=== PATIENT | male | born 1970 | race Caucasian/White ===

== ENCOUNTER 2018-10-18 00:12 | Emergency (ER) | payer BC ==
[~2018-10-18] VITALS: Ht 190.5 cm; Wt 103.0 kg
--- NOTE | 2018-10-18 00:17 | ED.ADGEN ---
Past History Past Medical History: No Pertinent History, DVT, Hypertension Past Surgical History: No Surgical History Alcohol Use: None Drug Use: None Adult General Chief Complaint Chief Complaint ".. Jaws were tight today...Like when my BP is up...so when I got home .. .I checked it..and it was... up...".. " I told .. my doctor... Dr. Zaman.. I have blood pressure... but not take meds.. I take coumadin...for my blood clot .. in my kidney..." " I got letter .. Dr.. Zaman quit...".. " I have no DrLudy now... ".. " I started smoking again today.. I checked my BP readings with [employer].. and it was too high.. 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 Pt. states he feels buzzing in his jaws ..when it is elevated. Pt. denies any history of chest pain. Denies any history of angina. There is no history of early onset cardiac disease in his family. Both father and mother's and ages 74. 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 Does not know his last INR level. No recent travel. No history immunosuppression. Patient normally healthy except for some mild hypertension and prior renal infarct. Review of Systems Review of Systems Constitutional: Denies fever or chills [] Eyes: Denies change in visual acuity, redness, or eye pain [] HENT: Denies nasal congestion or sore throat [] Buzzing in jaws... Respiratory: Denies cough or shortness of breath [] Cardiovascular: No additional information not addressed in HPI [] GI: Denies abdominal pain, nausea, vomiting, bloody stools or diarrhea [] : Denies dysuria or hematuria [] Musculoskeletal: Denies back pain or joint pain [] Integument: Denies rash or skin lesions [] Neurologic: Denies headache, focal weakness or sensory changes [] Endocrine: Denies polyuria or polydipsia [] All other systems were reviewed and found to be within normal limits, except as documented in this note. Family History Family History Noncontributory Current Medications Current Medications Current Medications Medications (Trade) Dose Ordered Sig/Sj Start Time Stop Time Status Last Admin Dose Admin Aspirin (Children'S Aspirin) 324 mg 1X ONCE 10/18/18 01:00 10/18/18 01:14 DC 10/18/18 01:33 81 MG Lactated Ringer's 1,000 ml @ 1,000 mls/hr Q1H 10/18/18 01:00 10/18/18 01:59 DC Allergies Allergies Allergies Coded Allergies Type Severity Reaction Last Updated Verified No Known Drug Allergies 10/18/18 No Physical Exam Physical Exam Constitutional: Well developed, well nourished, no acute distress, non-toxic appearance. [] HENT: Normocephalic, atraumatic, bilateral external ears normal, oropharynx moist, no oral exudates, nose normal. [] Eyes: PERRLA, EOMI, conjunctiva normal, no discharge. [] Neck: Normal range of motion, no tenderness, supple, no stridor. [] Cardiovascular:Heart rate regular rhythm, no murmur [] Lungs & Thorax: Bilateral breath sounds equal apex on auscultation [] Abdomen: Bowel sounds normal, soft, no tenderness, no masses, no pulsatile masses. Old surgery scar. Skin: Warm, dry, no erythema, no rash. [] Back: No tenderness, no CVA tenderness. [] Extremities: No tenderness, no cyanosis, no clubbing, ROM intact, no edema. [] Neurologic: Alert and oriented X 3, normal motor function, normal sensory function, no focal deficits noted. [] Psychologic: Affect anxious, judgement normal, mood normal. [] Current Patient Data Vital Signs Vital Signs Date Time Temp Pulse Resp B/P (MAP) Pulse Ox O2 Delivery O2 Flow Rate FiO2 10/18/18 00:25 98.1 80 24 135/102 (113) 99 Room Air Lab Results Laboratory Tests Test 10/18/18 00:55 White Blood Count 8.0 x10^3/uL (4.0-11.0) Red Blood Count 4.61 x10^6/uL (4.30-5.70) Hemoglobin 14.1 g/dL (13.0-17.5) Hematocrit 41.0 % (39.0-53.0) Mean Corpuscular Volume 89 fL (79-100) Mean Corpuscular Hemoglobin 31 pg (25-35) Mean Corpuscular Hemoglobin Concent 34 g/dL (31-37) Red Cell Distribution Width 13.0 % (11.5-14.5) Platelet Count 210 x10^3/uL (140-400) Neutrophils (%) (Auto) 40 % (31-73) Lymphocytes (%) (Auto) 48 % (24-48) Monocytes (%) (Auto) 10 % (0-9) H Eosinophils (%) (Auto) 3 % (0-3) Basophils (%) (Auto) 1 % (0-3) Neutrophils # (Auto) 3.2 x10^3uL (1.8-7.7) Lymphocytes # (Auto) 3.8 x10^3/uL (1.0-4.8) Monocytes # (Auto) 0.8 x10^3/uL (0.0-1.1) Eosinophils # (Auto) 0.2 x10^3/uL (0.0-0.7) Basophils # (Auto) 0.1 x10^3/uL (0.0-0.2) Prothrombin Time 21.7 SEC (9.4-11.4) H Prothrombin Time INR 2.3 (0.9-1.1) H PTT 36 SEC (23-33) H D-Dimer (Gaby) Pending Sodium Level 141 mmol/L (136-145) Potassium Level 4.1 mmol/L (3.5-5.1) Chloride Level 105 mmol/L (98-107) Carbon Dioxide Level 26 mmol/L (21-32) Anion Gap 10 (6-14) Blood Urea Nitrogen 23 mg/dL (8-26) Creatinine 1.0 mg/dL (0.7-1.3) Estimated GFR (Cockcroft-Gault) 79.4 Glucose Level 109 mg/dL (70-99) H Calcium Level 9.0 mg/dL (8.5-10.1) Magnesium Level 2.0 mg/dL (1.8-2.4) Total Bilirubin 0.3 mg/dL (0.2-1.0) Direct Bilirubin 0.1 mg/dL (0.0-0.2) Aspartate Amino Transferase (AST) 35 U/L (15-37) Alanine Aminotransferase (ALT) 72 U/L (16-63) H Alkaline Phosphatase 69 U/L (46-116) Creatine Kinase 201 U/L (39-308) Troponin I Quantitative < 0.017 ng/mL (0-0.055) VF-Suc-F-Type Natriuretic Peptide 16 pg/mL (0-124) Total Protein 7.4 g/dL (6.4-8.2) Albumin 4.0 g/dL (3.4-5.0) Lipase 111 U/L (73-393) EKG EKG My interpretation EKG shows sinus rhythm at 69 bpm. No findings acute STEMI of contralateral changes.[] Radiology/Procedures Radiology/Procedures I interpretation of chest x-ray shows no acute cardiopulmonary findings. No free air under the diaphragm.[] Course & Med Decision Making Course & Med Decision Making Pertinent Labs and Imaging studies reviewed. (See chart for details) Keep follow-up primary care. Continue take Coumadin directed. Take your blood pressure cuff to the doctor's office and compare readings with the doctor's readings. Return if any concerns. [] Final Impression Final Impression 1. Hx. of HTN[]-diastolic 2. History of renal infarct 3. INR 2.3 Dragon Disclaimer Dragon Disclaimer This electronic medical record was generated, in whole or in part, using a voice recognition dictation system. Dragon Disclaimer This chart was dictated in whole or in part using Voice Recognition software in a busy, high-work load, and often noisy Emergency Department environment. It may contain unintended and wholly unrecognized errors or omissions. Discharge Summary Visit Information Final Diagnosis Problems Medical Problems: (1) Hypertension Status: Acute Brief Hospital Course Allergies Allergies Coded Allergies Type Severity Reaction Last Updated Verified No Known Drug Allergies 10/18/18 No Vital Signs Vital Signs Date Time Temp Pulse Resp B/P (MAP) Pulse Ox O2 Delivery O2 Flow Rate FiO2 10/18/18 00:25 98.1 80 24 135/102 (113) 99 Room Air Lab Results Laboratory Tests Test 10/18/18 00:55 White Blood Count 8.0 x10^3/uL (4.0-11.0) Red Blood Count 4.61 x10^6/uL (4.30-5.70) Hemoglobin 14.1 g/dL (13.0-17.5) Hematocrit 41.0 % (39.0-53.0) Mean Corpuscular Volume 89 fL (79-100) Mean Corpuscular Hemoglobin 31 pg (25-35) Mean Corpuscular Hemoglobin Concent 34 g/dL (31-37) Red Cell Distribution Width 13.0 % (11.5-14.5) Platelet Count 210 x10^3/uL (140-400) Neutrophils (%) (Auto) 40 % (31-73) Lymphocytes (%) (Auto) 48 % (24-48) Monocytes (%) (Auto) 10 % (0-9) Eosinophils (%) (Auto) 3 % (0-3) Basophils (%) (Auto) 1 % (0-3) Neutrophils # (Auto) 3.2 x10^3uL (1.8-7.7) Lymphocytes # (Auto) 3.8 x10^3/uL (1.0-4.8) Monocytes # (Auto) 0.8 x10^3/uL (0.0-1.1) Eosinophils # (Auto) 0.2 x10^3/uL (0.0-0.7) Basophils # (Auto) 0.1 x10^3/uL (0.0-0.2) Prothrombin Time 21.7 SEC (9.4-11.4) Prothromb Time International Ratio 2.3 (0.9-1.1) Activated Partial Thromboplast Time 36 SEC (23-33) Sodium Level 141 mmol/L (136-145) Potassium Level 4.1 mmol/L (3.5-5.1) Chloride Level 105 mmol/L (98-107) Carbon Dioxide Level 26 mmol/L (21-32) Anion Gap 10 (6-14) Blood Urea Nitrogen 23 mg/dL (8-26) Creatinine 1.0 mg/dL (0.7-1.3) Estimated GFR (Cockcroft-Gault) 79.4 Glucose Level 109 mg/dL (70-99) Calcium Level 9.0 mg/dL (8.5-10.1) Magnesium Level 2.0 mg/dL (1.8-2.4) Total Bilirubin 0.3 mg/dL (0.2-1.0) Direct Bilirubin 0.1 mg/dL (0.0-0.2) Aspartate Amino Transf (AST/SGOT) 35 U/L (15-37) Alanine Aminotransferase (ALT/SGPT) 72 U/L (16-63) Alkaline Phosphatase 69 U/L (46-116) Creatine Kinase 201 U/L (39-308) Troponin I Quantitative < 0.017 ng/mL (0-0.055) FM-Oeg-E-Type Natriuretic Peptide 16 pg/mL (0-124) Total Protein 7.4 g/dL (6.4-8.2) Albumin 4.0 g/dL (3.4-5.0) Lipase 111 U/L (73-393) Brief Hospital Course Mr. Edouard is a 48 old male who presented with hx. elevated BP at home. Discharge Information Condition at Discharge: Improved, Stable Dischare Medications Current Medications Aspirin (Children'S Aspirin) 324 mg 1X ONCE PO Last administered on 10/18/18at 01:33; Admin Dose 81 MG; Start 10/18/18 at 01:00; Stop 10/18/18 at 01:14; Status DC Lactated Ringer's 1,000 ml @ 1,000 mls/hr Q1H IV ; Start 10/18/18 at 01:00; Stop 10/18/18 at 01:59; Status DC Active Scripts Active Reported Warfarin Sodium 4 Mg Tablet 4.5 Mg PO DAILY Warfarin Sodium 4 Mg Tablet 4 Mg PO [id number] GARCIA MD Oct 18, 2018 00:17
[2018-10-18] MEDS ORDERED: IV RINGERS SOLUTION,LACTATED 1,000 ML IV SCH (01:00)
[2018-10-18] MEDS ORDERED: ASPIRIN 81 MG TAB.CHEW PO ONE (01:00)
[2018-10-18] MEDS ORDERED: WARF4TAB64 PO ×2 (01:17)
[2018-10-18 01:22] LABS: BASO # 0.1 x10^3/uL (0.0-0.2); BASO % 1 % (0-3); EOS # 0.2 x10^3/uL (0.0-0.7); EOS % 3 % (0-3); HEMOGLOBIN 14.1 g/dL (13.0-17.5); LYMPH # 3.8 x10^3/uL (1.0-4.8); LYMPH % 48 % (24-48); MEAN CORPUSCULAR HEMOGLOBIN 31 pg (25-35); MEAN CORPUSCULAR HGB CONC 34 g/dL (31-37); MEAN CORPUSCULAR VOLUME 89 fL (79-100); MONO # 0.8 x10^3/uL (0.0-1.1); MONO % 10 % (0-9); NEUT # 3.2 x10^3uL (1.8-7.7); NEUT % 40 % (31-73); PLATELET COUNT 210 x10^3/uL (140-400); RED BLOOD COUNT 4.61 x10^6/uL (4.30-5.70)
[2018-10-18 01:39] LABS: DIRECT BILIRUBIN 0.1 mg/dL (0.0-0.2); GFR 79.4; POTASSIUM 4.1 mmol/L (3.5-5.1); TOTAL BILIRUBIN 0.3 mg/dL (0.2-1.0); TOTAL PROTEIN 7.4 g/dL (6.4-8.2)
[2018-10-18 02:20] VITALS: BP 113/82
--- NOTE | 2018-10-18 07:44 | RAD ---
Chest, 2 views, 10/18/2018: HISTORY: Hypertension The heart size and pulmonary vascularity are normal. No pulmonary infiltrate is seen. There is no evidence of pleural fluid. IMPRESSION: No acute cardiopulmonary abnormality is detected. Electronically signed by: Urbano Montoya MD (10/18/2018 7:41 AM) [facility]
--- NOTE | 2018-10-18 16:26 | EKG ---
[address] [address] Test Date: 2018-10-18 Test Time: 00:30:07 Pat Name: MU OLIVER Department: Room: Gender: M Senior Trainer: : 1970 Requested By: ANALY FORDE Order Number: [id number] Reading MD: Mark Scott Measurements Intervals [place] Rate: 69 P: -17 DE: 154 QRS: 9 QRSD: 88 T: 24 QT: 380 QTc: 409 Interpretive Statements SINUS RHYTHM Electronically Signed On 10-25-2018 8:08:45 SET KEY DRIVER by Mark Scott
[2018-10-19] MEDS ORDERED: BUPR100T7 PO (23:37)
== END 2018-10-18 02:27 | disposition home or self-care (01) ==
LOC: ER 00:12
DX: I10 Essential (primary) hypertension (principal); N28.0 Ischemia and infarction of kidney; R79.1 Abnormal coagulation profile; Z86.718 Personal history of other venous thrombosis and embolism; Z79.82 Long term (current) use of aspirin
CPT/HCPCS: 36415; 71046; 80048; 80076; 82550; 83690; 83735; 83880; 84443; 84484; 85025; 85379; 85610; 85730; 93005; 99284

== ENCOUNTER 2018-10-19 22:35 | Emergency (ER) | payer BC ==
[~2018-10-19] VITALS: Ht 190.5 cm; Wt 113.4 kg
[~2018-10-19 22:35] MED LIST: WARF4TAB64 PO
[2018-10-19] MEDS ORDERED: BUPR100T7 PO (23:37)
--- NOTE | 2018-10-19 23:39 | PHYS DOC ---
Adult General Chief Complaint Chief Complaint anxiety HPI HPI 48 years old and presented to the emergency department with feeling anxious his been checking his blood pressure worried f his blood pressure high he was seen this morning at the hospital evaluated at complete blood work reported to be negative Review of Systems Review of Systems Constitutional: Denies fever or chills [] Eyes: Denies change in visual acuity, redness, or eye pain [] HENT: Denies nasal congestion or sore throat [] Respiratory: Denies cough or shortness of breath [] Cardiovascular: No additional information not addressed in HPI [] GI: Denies abdominal pain, nausea, vomiting, bloody stools or diarrhea [] : Denies dysuria or hematuria [] Musculoskeletal: Denies back pain or joint pain [] Integument: Denies rash or skin lesions [] Neurologic: Denies headache, focal weakness or sensory changes [] Endocrine: Denies polyuria or polydipsia [] All other systems were reviewed and found to be within normal limits, except as documented in this note. Allergies Allergies Allergies Coded Allergies Type Severity Reaction Last Updated Verified No Known Drug Allergies 10/18/18 No Physical Exam Physical Exam Constitutional: Well developed, well nourished, no acute distress, non-toxic appearance. [] HENT: Normocephalic, atraumatic, bilateral external ears normal, oropharynx moist, no oral exudates, nose normal. [] Eyes: PERRLA, EOMI, conjunctiva normal, no discharge. [] Neck: Normal range of motion, no tenderness, supple, no stridor. [] Cardiovascular:Heart rate regular rhythm, no murmur [] Lungs & Thorax: Bilateral breath sounds clear to auscultation [] Abdomen: Bowel sounds normal, soft, no tenderness, no masses, no pulsatile masses. [] Skin: Warm, dry, no erythema, no rash. [] Back: No tenderness, no CVA tenderness. [] Extremities: No tenderness, no cyanosis, no clubbing, ROM intact, no edema. [] Neurologic: Alert and oriented X 3, normal motor function, normal sensory function, no focal deficits noted. [] Psychologic: Affect normal, judgement normal, anxious[] Current Patient Data Vital Signs Vital Signs Date Time Temp Pulse Resp B/P (MAP) Pulse Ox O2 Delivery O2 Flow Rate FiO2 10/19/18 22:40 98.5 63 22 97 Room Air EKG EKG [] Radiology/Procedures Radiology/Procedures [] Course & Med Decision Making Course & Med Decision Making Pertinent Labs and Imaging studies reviewed. (See chart for details) [] Final Impression Final Impression [] Problems: (1) Anxiety Dragon Disclaimer Dragon Disclaimer This electronic medical record was generated, in whole or in part, using a voice recognition dictation system. ROB MÉNDEZ MD Oct 19, 2018 23:39
[2018-10-19 23:40] VITALS: BP 129/85
== END 2018-10-19 23:45 | disposition home or self-care (01) ==
LOC: ER 22:35
DX: F41.9 Anxiety disorder, unspecified (principal)
CPT/HCPCS: 99284

== ENCOUNTER 2018-10-27 17:08 | Inpatient (IN) | payer BC ==
[~2018-10-27] VITALS: Ht 190.5 cm; Wt 105.0 kg
[~2018-10-27 17:08] MED LIST changes: +BUPR100T7 PO
--- NOTE | 2018-10-27 17:22 | EKG ---
[address] [address] Test Date: 2018-10-27 Test Time: 17:16:56 Pat Name: MU OLIVER Department: Room: Gender: M Pharmacist In Charge: : 1970 Requested By: TIMOTHY GIFFORD Order Number: [id number] Reading MD: Jonn Yung Measurements Intervals [place] Rate: 64 P: -3 NE: 154 QRS: 21 QRSD: 90 T: 52 QT: 384 QTc: 396 Interpretive Statements SINUS RHYTHM Electronically Signed On 10-30-2018 10:50:51 SHOE COVERER by Jonn Yung
--- NOTE | 2018-10-27 17:33 | RAD ---
Chest radiograph 10/27/2018 4:18 PM INDICATION: Chest pain COMPARISON: October 18, 2018 TECHNIQUE: Portable upright frontal view of the chest is provided. FINDINGS: The cardiomediastinal silhouette is within normal limits. There are no pleural effusions. There is no pulmonary vascular congestion. There is no pneumothorax. The lungs are clear. No significant osseous abnormality is identified. IMPRESSION: No acute cardiopulmonary process. Electronically signed by: Tasha Garcia MD (10/27/2018 5:30 PM) [facility]
[2018-10-27] MEDS ORDERED: ASPIRIN 81 MG TAB.CHEW ONE (17:40)
--- NOTE | 2018-10-27 17:41 | PHYS DOC ---
Past History Past Medical History: DVT, Hypertension Past Surgical History: No Surgical History Alcohol Use: None Drug Use: None Adult General Chief Complaint Chief Complaint: CHEST PAIN HPI HPI 48-year-old male presenting to the emergency department today with chest pain. He has been having this pain for about a week. The pain is a pressure sensation that goes into the throat. It is a burning sensation as well. He also has episodes of sweatiness of skin. He has a history of a renal infarct for which she takes warfarin. He denies unilateral leg swelling hemoptysis or recent surgery or immobilization. he denies having dm, htn, or hld. Pos for smoking. Review of systems is negative for abdominal pain vomiting fevers chills. All other review of systems is negative unless otherwise noted in history of present illness. ED course: 48-year-old woman presenting the emergency department today with chest pain. EKG obtained and reviewed by myself shows sinus rhythm with a regular rate. ST segments congruent. Not suggestive of ACS. On arrival the patient's pain is not present. He is resting comfortably in the examination room. Chest x-ray obtained along with blood work. Patient was seen just prior to sign out at 6 PM. Chest x-ray is unremarkable. Blood work pending at this time. Plan is to admit the patient to the hospital for chest pain rule out. HEART SCORE History Slightly suspicious 0 Moderately suspicious +1 Highly suspicious +2 EKG 1 point: No ST depression but LBBB, LVH, repolarization changes (ex: digoxin); 2 points: ST depression/elevation not due to LBBB, LVH, or digoxin Normal 0 Non-specific repolarization disturbance +[address] depression +2 Age <45 0 45-65 +1 65 +2 Risk factors Risk factors: HTN, hypercholesterolemia, DM, obesity (BMI >30 kg/m), smoking (current, or smoking cessation 3 mo), positive family history (parent or sibling with CVD before age 65); atherosclerotic disease: prior KS, PCI/CABG, CVA/TIA, or peripheral arterial disease No known risk factors 0 1-2 risk factors +1 3 risk factors or history of atherosclerotic disease +2 Initial troponin Use local assays and corresponding cutoffs NOT BACK YET Total 4 points Review of Systems Review of Systems SEE ABOVE. Current Medications Current Medications Current Medications Medications (Trade) Dose Ordered Sig/Sj Start Time Stop Time Status Last Admin Dose Admin Aspirin (Children'S Aspirin) 324 mg 1X ONCE 2/22/19 17:30 10/27/18 17:31 UNV Nitroglycerin (Nitrostat) 0.4 mg 1X ONCE 10/27/18 17:30 10/27/18 17:31 UNV Allergies Allergies Allergies Coded Allergies Type Severity Reaction Last Updated Verified No Known Drug Allergies 10/18/18 No Physical Exam Physical Exam SEE ABOVE Constitutional: Well developed, well nourished, no acute distress, non-toxic appearance. [] HENT: Normocephalic, atraumatic, bilateral external ears normal, oropharynx moist, no oral exudates, nose normal. [] Eyes: PERRLA, EOMI, conjunctiva normal, no discharge. [] Neck: Normal range of motion, no tenderness, supple, no stridor. [] Cardiovascular:Heart rate regular rhythm, no murmur [] Lungs & Thorax: Bilateral breath sounds clear to auscultation [] Abdomen: Bowel sounds normal, soft, no tenderness, no masses, no pulsatile masses. [] Skin: Warm, dry, no erythema, no rash. [] Back: No tenderness, no CVA tenderness. [] Extremities: No tenderness, no cyanosis, no clubbing, ROM intact, no edema. [] Neurologic: Alert and oriented X 3, normal motor function, normal sensory function, no focal deficits noted. [] Psychologic: Affect normal, judgement normal, mood normal. [] Current Patient Data Vital Signs Vital Signs Date Time Temp Pulse Resp B/P (MAP) Pulse Ox O2 Delivery O2 Flow Rate FiO2 10/27/18 17:29 98.1 70 18 100 Room Air EKG EKG [] Radiology/Procedures Radiology/Procedures [] Course & Med Decision Making Course & Med Decision Making Pertinent Labs and Imaging studies reviewed. (See chart for details) [] Dragon Disclaimer Dragon Disclaimer This electronic medical record was generated, in whole or in part, using a voice recognition dictation system. Departure Departure: Impression: Primary Impression: Chest pain Referrals: PCP,MUNIR (PCP) TIMOTHY GIFFORD MD Oct 27, 2018 17:41
[2018-10-27] MEDS ORDERED: ASPIRIN 81 MG TAB.CHEW PO ONE (17:45)
[2018-10-27] MEDS ORDERED: NITROGLYCERIN SUBLINGUAL 0.4 MG BOTTLE OF 25. SL ONE (17:45)
[2018-10-27 17:57] LABS: BASO # 0.1 x10^3/uL (0.0-0.2); BASO % 1 % (0-3); EOS # 0.2 x10^3/uL (0.0-0.7); EOS % 2 % (0-3); HEMATOCRIT 42.7 % (39.0-53.0); HEMOGLOBIN 14.5 g/dL (13.0-17.5); LYMPH # 3.1 x10^3/uL (1.0-4.8); LYMPH % 39 % (24-48); MEAN CORPUSCULAR HEMOGLOBIN 30 pg (25-35); MEAN CORPUSCULAR HGB CONC 34 g/dL (31-37); MEAN CORPUSCULAR VOLUME 90 fL (79-100); MONO # 0.7 x10^3/uL (0.0-1.1); MONO % 9 % (0-9); NEUT # 3.8 x10^3uL (1.8-7.7); NEUT % 49 % (31-73); PLATELET COUNT 234 x10^3/uL (140-400); RED BLOOD COUNT 4.76 x10^6/uL (4.30-5.70); RED CELL DISTRIBUTION WIDTH 13.3 % (11.5-14.5); WHITE BLOOD COUNT 7.8 x10^3/uL (4.0-11.0)
[2018-10-27 18:05] LABS: ALBUMIN 4.3 g/dL (3.4-5.0); CALCIUM 9.2 mg/dL (8.5-10.1); CREATININE 1.1 mg/dL (0.7-1.3); DIRECT BILIRUBIN 0.2 mg/dL (0.0-0.2); GFR 71.1; POTASSIUM 3.9 mmol/L (3.5-5.1); TOTAL BILIRUBIN 0.6 mg/dL (0.2-1.0); TOTAL PROTEIN 7.7 g/dL (6.4-8.2)
[2018-10-27] MEDS ORDERED: ONDANSETRON PF 4 MG/2 ML VIAL. IV PRN (20:30)
[2018-10-27] MEDS ORDERED: buPROPion 100 MG TABLET PO SCH (21:00)
[2018-10-27] MEDS ORDERED: ALPRAZolam 0.5 MG TABLET PO SCH (21:00)
--- NOTE | 2018-10-27 22:05 | NUR ---
Pt admitted from ER to [facility] room 121 via [facility], accompanied by EMS and nursing staff. Pt transferred from [facility] to bed independently. Pt admitted for chest/epigastric pain. Pt was recently seen at [facility] for similar symptoms. Admission assessment completed. Pt A&O x4, very pleasant & cooperative. Pt placed on Telemetry, SR noted on monitor. Health history and home medications reviewed with pt. Pt lives at home with . Coumadin & SCDs for VTE. Pt refused flu vaccine. Cardiology consulted. Pt was given written information regarding hospital policies, unit procedures and contact persons. Valuables were checked, logged and left at bedside. Call light within reach. Pt given box lunch.
[2018-10-27 22:20] VITALS: BP 123/72
[2018-10-27] MEDS ORDERED: CLON0.5T11 PO (22:41)
[2018-10-27] MEDS ORDERED: clonazePAM 0.5 MG TABLET PO PRN (22:45)
[2018-10-27] MEDS ORDERED: NON FORMULARY ITEM (Warfarin Sodium 4 MG) PO SCH (22:45)
[2018-10-28 06:06] VITALS: BP 110/68
[2018-10-28] MEDS: IPRATRPIUM/ALBUTEROL 0.5/2.5MG 3 ML NEBU. NEB SCH ×2 (06:15→10:25)
[2018-10-28 06:44] LABS: BASO % 1 % (0-3); EOS # 0.2 x10^3/uL (0.0-0.7); EOS % 3 % (0-3); HEMATOCRIT 40.4 % (39.0-53.0); HEMOGLOBIN 13.7 g/dL (13.0-17.5); LYMPH # 2.3 x10^3/uL (1.0-4.8); LYMPH % 36 % (24-48); MEAN CORPUSCULAR HEMOGLOBIN 30 pg (25-35); MEAN CORPUSCULAR HGB CONC 34 g/dL (31-37); MEAN CORPUSCULAR VOLUME 89 fL (79-100); MONO # 0.6 x10^3/uL (0.0-1.1); MONO % 10 % (0-9); NEUT # 3.2 x10^3uL (1.8-7.7); NEUT % 51 % (31-73); PLATELET COUNT 215 x10^3/uL (140-400); RED BLOOD COUNT 4.53 x10^6/uL (4.30-5.70); RED CELL DISTRIBUTION WIDTH 13.2 % (11.5-14.5); WHITE BLOOD COUNT 6.3 x10^3/uL (4.0-11.0)
[2018-10-28 06:48] LABS: CALCIUM 8.9 mg/dL (8.5-10.1); GFR 79.4; POTASSIUM 3.9 mmol/L (3.5-5.1)
[2018-10-28] MEDS ORDERED: buPROPion SR 100 MG TABLET.SA. PO SCH (09:00)
[2018-10-28] MEDS ORDERED: WARFARIN SODIUM 4.5 MG PO SCH (09:00)
--- NOTE | 2018-10-28 10:20 | NUR ---
Cardiology consult called into [facility] cardiology
[2018-10-28 11:09] VITALS: BP 113/70
--- NOTE | 2018-10-28 14:04 | PDOC2 ---
CONSULT Date of Admission DATE: 10/28/18 TIME: 14:04 Reason for Consult: Chest pain Referring Physician: Dr. Lewis Chief Complaint Chest pain and anxiety Source: Chart review, Patient Problem List Problems Medical Problems: (1) Chest pain Status: Acute History of Present Illness 48-year-old male presented with one-week history of intermittent episodes of retrosternal chest pressure associated with feelings of anxiety and mild dyspnea. Symptoms not related to exertion or food intake. He denied any orthopnea/PND or syncope. Past Medical History Renal infarction treated with Coumadin Anxiety Past Surgical History: No pertinent history Family History Negative for premature coronary artery disease Social History Patient smokes one pack of cigarettes daily but denied any alcohol or drug use Current Medications Current Medications Aspirin (Children'S Aspirin) 324 mg 1X ONCE PO Last administered on 10/27/18at 17:43; Start 10/27/18 at 17:45; Stop 10/27/18 at 17:46; Status DC Nitroglycerin (Nitrostat) 0.4 mg 1X ONCE SL Last administered on 10/27/18at 17: 42; Start 10/27/18 at 17:45; Stop 10/27/18 at 17:46; Status DC Aspirin (Children'S Aspirin) 81 mg STK-MED ONCE .ROUTE ; Start 10/27/18 at 17:40 ; Stop 10/27/18 at 17:41; Status DC Ondansetron HCl (Zofran) 4 mg PRN Q4HRS PRN IV NAUSEA/VOMITING; Start 10/27/18 at 20:30; Stop 10/28/18 at 20:29 Albuterol/ Ipratropium (Duoneb) 3 ml RTQID NEB ; Start 10/28/18 at 08:00; Stop 10/29/18 at 07:59 Bupropion HCl (Wellbutrin) 100 mg HS PO Last administered on 10/27/18at 22:49; Start 10/27/18 at 21:00; Stop 10/28/18 at 07:23; Status DC Alprazolam (Xanax) 0.5 mg HS PO Last administered on 10/27/18at 22:49; Start at 21:00 Clonazepam (KlonoPIN) 0.5 mg PRN BID PRN PO ANXIETY / AGITATION; Start at 22:45 Bupropion HCl (Wellbutrin Sr) 100 mg BID PO Last administered on 10/28/18at 09: 58; Start 10/28/18 at 09:00 Non-Formulary Medication (Warfarin Sodium ) 4 mg PO ; Start at 22:45; Status UNV Non-Formulary Medication (Warfarin Sodium ) 4.5 mg DAILY PO ; Start 10/28/18 at 09:00; Status UNV Warfarin Sodium (Coumadin Per Physician) 1 each PRN DAILY PRN MC SEE COMMENTS; Start 10/28/18 at 07:30 Active Scripts Active Wellbutrin Sr (Bupropion Hcl) 100 Mg Tablet.er 1 Tab PO BID Reported Clonazepam 0.5 Mg Tablet 0.5 Mg PO PRN BID PRN LAST DOSE GIVEN: DATE: TIME: NEXT DOSE DUE: DATE: TIME: Warfarin Sodium 4 Mg Tablet 4.5 Mg PO DAILY Warfarin Sodium 4 Mg Tablet 4 Mg PO Allergies: Coded Allergies: No Known Drug Allergies (Unverified , 10/18/18) PSYCHOLOGICAL ROS: No: Hallucinations Eyes: No: Loss of vision HEENT: No: Epistaxis Respiratory: YES: Shortness of breath; No: Hemoptysis Cardiovascular: yes: Chest Pain Gastrointestinal: No: Vomiting, Diarrhea Genitourinary: No: Henaturia Neurological: No: Seizures Skin: No: Rash General: Alert, Oriented X3 HEENT: Atraumatic, PERRLA Lungs: Clear to auscultation Heart: Regular rate Abdomen: Soft, No tenderness Extremities: No edema Psych/Mental Status: Mood NL VITALS Vital Signs Date Time Temp Pulse Resp B/P (MAP) Pulse Ox O2 Delivery O2 Flow Rate FiO2 10/28/18 11:09 98.2 60 20 113/70 (84) 99 Room Air Labs Laboratory Tests Test 10/27/18 17:24 10/27/18 17:37 10/27/18 23:45 10/28/18 06:28 White Blood Count 7.8 x10^3/uL (4.0-11.0) 6.3 x10^3/uL (4.0-11.0) Red Blood Count 4.76 x10^6/uL (4.30-5.70) 4.53 x10^6/uL (4.30-5.70) Hemoglobin 14.5 g/dL (13.0-17.5) 13.7 g/dL (13.0-17.5) Hematocrit 42.7 % (39.0-53.0) 40.4 % (39.0-53.0) Mean Corpuscular Volume 90 fL (79-100) 89 fL (79-100) Mean Corpuscular Hemoglobin 30 pg (25-35) 30 pg (25-35) Mean Corpuscular Hemoglobin Concent 34 g/dL (31-37) 34 g/dL (31-37) Red Cell Distribution Width 13.3 % (11.5-14.5) 13.2 % (11.5-14.5) Platelet Count 234 x10^3/uL (140-400) 215 x10^3/uL (140-400) Neutrophils (%) (Auto) 49 % (31-73) 51 % (31-73) Lymphocytes (%) (Auto) 39 % (24-48) 36 % (24-48) Monocytes (%) (Auto) 9 % (0-9) 10 % (0-9) Eosinophils (%) (Auto) 2 % (0-3) 3 % (0-3) Basophils (%) (Auto) 1 % (0-3) 1 % (0-3) Neutrophils # (Auto) 3.8 x10^3uL (1.8-7.7) 3.2 x10^3uL (1.8-7.7) Lymphocytes # (Auto) 3.1 x10^3/uL (1.0-4.8) 2.3 x10^3/uL (1.0-4.8) Monocytes # (Auto) 0.7 x10^3/uL (0.0-1.1) 0.6 x10^3/uL (0.0-1.1) Eosinophils # (Auto) 0.2 x10^3/uL (0.0-0.7) 0.2 x10^3/uL (0.0-0.7) Basophils # (Auto) 0.1 x10^3/uL (0.0-0.2) 0.0 x10^3/uL (0.0-0.2) Sodium Level 143 mmol/L (136-145) 141 mmol/L (136-145) Potassium Level 3.9 mmol/L (3.5-5.1) 3.9 mmol/L (3.5-5.1) Chloride Level 104 mmol/L (98-107) 105 mmol/L (98-107) Carbon Dioxide Level 28 mmol/L (21-32) 26 mmol/L (21-32) Anion Gap 11 (6-14) 10 (6-14) Blood Urea Nitrogen 11 mg/dL (8-26) 16 mg/dL (8-26) Creatinine 1.1 mg/dL (0.7-1.3) 1.0 mg/dL (0.7-1.3) Estimated GFR (Cockcroft-Gault) 71.1 79.4 Glucose Level 84 mg/dL (70-99) 109 mg/dL (70-99) Calcium Level 9.2 mg/dL (8.5-10.1) 8.9 mg/dL (8.5-10.1) Total Bilirubin 0.6 mg/dL (0.2-1.0) Direct Bilirubin 0.2 mg/dL (0.0-0.2) Aspartate Amino Transf (AST/SGOT) 24 U/L (15-37) Alanine Aminotransferase (ALT/SGPT) 48 U/L (16-63) Alkaline Phosphatase 59 U/L (46-116) Troponin I Quantitative < 0.017 ng/mL (0-0.055) < 0.017 ng/mL (0-0.055) < 0.017 ng/mL (0-0.055) Total Protein 7.7 g/dL (6.4-8.2) Albumin 4.3 g/dL (3.4-5.0) Lipase 98 U/L (73-393) D-Dimer (Gaby) < 0.19 mg/L (0.00-0.50) Test 10/28/18 09:54 Prothrombin Time 24.0 SEC (9.4-11.4) Prothromb Time International Ratio 2.5 (0.9-1.1) Assessment/Plan 1. Chest pain with atypical features most probably related to his anxiety. Myocardial infarction has been ruled out. Plan for exercise stress echocardiogram as an outpatient. 2. History of renal infarct: On Coumadin Thank you for your consultation PASNOORI,ELIGIO R MD Oct 28, 2018 14:04
--- NOTE | 2018-10-28 14:35 | NUR ---
Pt is D/C home with self care. Patient is stable at time of d/c. IV removed. Tele monitor removed. Patient ambulated off unit. Patients belongings sent with pt at time of d/c
--- NOTE | 2018-10-28 15:03 | SSS ---
ADMIT DATE: 10/28/2018 HISTORY OF PRESENT ILLNESS: The patient is a 48-year-old Wallisian male patient, who came to the Emergency Room complaining of chest pain, has been having this pain for about a week. The pain is a pressure sensation that goes into the throat. It is burning sensation as well. He also had episodes of diaphoresis, history of renal infarct for which he takes warfarin. He denied any leg swelling, hemoptysis, has no significant past medical history. He was extensively investigated in the Emergency Room. His first set of cardiac enzymes was unremarkable. EKG showed that he was in sinus rhythm and was admitted to do more sets of cardiac enzyme and to consult the cardiology team. PAST MEDICAL HISTORY: Significant for renal infarct for which he is on Coumadin, although I am not sure of the specific whether he has history of atrial fibrillation or not. PAST SURGICAL HISTORY: Unremarkable. ALLERGIES: No known drug allergies. MEDICATIONS: He is currently on following medications: Warfarin 4 mg on , Tuesday, Tuesday and warfarin 4.5 mg on Tuesday, Tuesday, Tuesday. He is on clonazepam 0.5 mg twice a day as needed and Wellbutrin SR 100 mg twice a day. FAMILY HISTORY: His father in his 70s due to myocardial infarction. Again, his mother also in her 70s. SOCIAL HISTORY: He is , has step kids, smokes a pack a day, does not drink alcohol or use any recreational drugs. 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 REVIEW OF SYSTEMS: As per history of present illness. PHYSICAL EXAMINATION: GENERAL: On arrival, the patient looked well and was clearly in no apparent respiratory distress, pale, but no jaundice, cyanosis, or thyromegaly. No jugular venous distension. No lower limb edema. VITAL SIGNS: His heart rate was 60, blood pressure was 113/70, temperature was 98.2, respiratory rate 20, and oxygen saturation was 99% on room air. HEAD, EYES, EARS, NOSE, AND THROAT: Showed normocephalic, atraumatic. NECK: Supple. HEART: Showed normal first and second sounds. No gallop, rub or murmur. CHEST: Clear to auscultation. No crepitation or rhonchi. ABDOMEN: Distended, soft, nontender. NEUROLOGIC: He was awake, alert, responding appropriately. All cranial nerves are intact. EXTREMITIES: He moves extremities without difficulty. LABORATORY DATA: Showed a white cell count of 7800, hemoglobin 14.5, hematocrit 42, MCV 90 and platelet count 234,000. His chemistry showed serum sodium of 143, potassium 3.9, chloride 104, bicarbonate 28, anion gap of 11, BUN 11, creatinine 1.1, estimated GFR was 71 mL per minute, his glucose was 84. Calcium was 9.2. Total bilirubin, AST, ALT, alkaline phosphatase were normal. His total protein was 7.7, albumin was 4.3. Three sets of cardiac enzymes showed a troponin to be less than 0.017. His prothrombin time was 24. INR 2.5. Her D-dimer was less than 0.19. ASSESSMENT AND PLAN: The patient was discharged home to follow with his primary care physician and the Cardiology team recommended ischemic workup as an outpatient. The patient had a CT scan done, which showed some plaquing and seems that what triggered his severe anxiety. Unfortunately, we attempted multiple times to get the records from [facility] to discuss the finding with him, but to no avail. YENY HURD MD DR: RACHID/rivas JOB#: [id number] / [id number]
== END 2018-10-28 14:35 | disposition home or self-care (01) | DRG 880 ==
LOC: ER 17:08 → 1 SOUTH 20:00
PROVIDERS: ADMIT Internal Medicine; ATTEND Internal Medicine
DX: F41.9 Anxiety disorder, unspecified (principal); E24.9 Cushing's syndrome, unspecified; I10 Essential (primary) hypertension; Z79.01 Long term (current) use of anticoagulants; F17.210 Nicotine dependence, cigarettes, uncomplicated; Z82.49 Family history of ischemic heart disease and other diseases of the circulatory system
CPT/HCPCS: 36415; 71045; 80048; 80076; 83690; 84484; 85025; 85379; 85610; 93005; 99285; 99406

== ENCOUNTER 2020-12-16 03:58 | Observation (INO) | payer BC, OTHER ==
[~2020-12-16] VITALS: Ht 193 cm; Wt 97.7 kg
[~2020-12-16 03:58] MED LIST changes: +CLON0.5T4 PO
--- NOTE | 2020-12-16 04:04 | PHYS DOC ---
Past History Past Medical History: DVT, Hypertension Past Medical History Renal infarct Past Surgical History: No Surgical History Alcohol Use: None Drug Use: None General Adult HPI: HPI: ".. I have pain.. here ..in center.. my chest... it been ... 30 min...." Patient is a 50 year old male [place] from [place] who presents with above hx and complaints of central chest pain. Pt. has started smoking again. Pt. seen previously 10/27- for chest pain. Pt. had consult with Dr. Scott previously 2018. At that time cardiac infarct was ruled out. Pt. rates chest pain as 0 or 10. Patient does have a history of anxiety, Real Infacrct, and HTN. 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 No recent travel. No history of trauma. No specific ill contacts. No change in baseline meds. Reports he has been missed some of his Coumadin medication. Patient has resumed smoking. Review of Systems: Review of Systems: Constitutional: Denies fever or chills Eyes: Denies change in visual acuity HENT: Denies nasal congestion or sore throat Respiratory: Denies cough or shortness of breath Cardiovascular: Complains of chest pain. Denies edema GI: Denies abdominal pain, nausea, vomiting, bloody stools or diarrhea : Denies dysuria Musculoskeletal: Denies back pain or joint pain Integument: Denies rash Neurologic: Denies headache, focal weakness or sensory changes Endocrine: Denies polyuria or polydipsia Lymphatic: Denies swollen glands Psychiatric: Denies depression or anxiety Family History: Family History: Noncontributory Current Medications: Current Meds: See nursing for home meds Allergies: Allergies: Allergies Coded Allergies Type Severity Reaction Last Updated Verified No Known Drug Allergies 10/18/18 No Physical Exam: PE: Constitutional: Moderate acute distress, non-toxic appearance. [] HENT: Normocephalic, atraumatic, bilateral external ears normal, oropharynx mois t, no oral exudates, nose normal. [] Eyes: PERRLA, EOMI, conjunctiva normal, no discharge. [] Neck: Normal range of motion, no tenderness, supple, no stridor. [] Cardiovascular: Bradycardia heart rate regular rhythm, no murmur [] Lungs & Thorax: Bilateral breath sounds equal apex with scattered wheezes on auscultation [] Abdomen: Bowel sounds normal,, soft, no tenderness, no masses, no pulsatile masses. [] Skin: Warm, dry, no erythema, no rash. [] Back: No tenderness, no CVA tenderness. [] Extremities: No tenderness, no cyanosis, no clubbing, ROM intact, no edema. [] No cording appreciated Neurologic: Alert and oriented X 3, normal motor function, normal sensory function, no focal deficits noted. [] Psychologic: Affect normal, judgement normal, mood normal. [] EKG: EKG: My interpretation EKG shows a sinus rhythm at 66 bpm. Low voltage. There is incomplete right bundle branch block. Some nonspecific T wave changes. [] Radiology/Procedures: Radiology/Procedures: [][address] [address] IMAGING REPORT Signed PATIENT: MU OLIVER ACCOUNT: [id number] : 1970 LOCATION: ER AGE: 50 SEX: M EXAM STATUS: PRE ER ORD. PHYSICIAN: ANALY FORDE MD REASON: cp PROCEDURE: PORTABLE CHEST 1V XR CHEST 1V Clinical History: Reason: cp / Spl. Instructions: / History: Technique: AP view of the chest was obtained at 12/16/2020 4:19 AM. Comparison: October 27, 2018. Findings: The cardiomediastinal silhouette is normal. The pulmonary vasculature is normal. The lungs and pleural margins are clear. Impression: No evidence of an acute cardiopulmonary process. Electronically signed by: Awais Aragon III, MD (12/16/2020 4:29 AM) [facility] DICTATED AND SIGNED BY: AWAIS ARAGON III, MD DATE: 12/16/20 0428 CC: ANALY FORDE MD; PCP,NO ~MTH0 0 Heart Score: C/O Chest Pain: Yes HEART Score for Chest Pain: HEART Score for Chest Pain Response (Comments) Value History Moderately Suspicious 1 ECG Nonspecific Repolarizatio 1 Age >45 - < 65 1 Risk Factors 1 or 2 Risk Factors 1 Troponin < Normal Limit 0 Total 4 Risk Factors: Risk Factors: DM, Current or recent (<one month) smoker, HTN, HLP, family history of CAD, obesity. Risk Scores: Score 0 - 3: 2.5% MACE over next 6 weeks - Discharge Home Score 4 - 6: 20.3% MACE over next 6 weeks - Admit for Clinical Observation Score 7 - 10: 72.7% MACE over next 6 weeks - Early Invasive Strategies Course & Med Decision Making: Course & Med Decision Making Pertinent Labs and Imaging studies reviewed. (See chart for details) Discussed history, presentation, testing, and treatment plan with , to be admitted to his service and cardiology consult. Impression: 1. Chest Pain 2. Hypertension 3. Hx. of Renal Infarct 4. Hx,. of Anxiety 5. Subtherapeutic INR 1.3 6. Tobacco use [] Dragon Disclaimer: Dragon Disclaimer: This electronic medical record was generated, in whole or in part, using a voice recognition dictation system. Departure Departure: Referrals: PCP,NO (PCP) Dragon Disclaimer This chart was dictated in whole or in part using Voice Recognition software in a busy, high-work load, and often noisy Emergency Department environment. It may contain unintended and wholly unrecognized errors or omissions. ANALY FORDE MD Dec 16, 2020 04:04
--- NOTE | 2020-12-16 04:10 | EKG ---
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
[2020-12-16 04:26] LABS: BASO # 0.1 x10^3/uL (0.0-0.2); BASO % 1 % (0-3); EOS # 0.2 x10^3/uL (0.0-0.7); EOS % 2 % (0-3); HEMATOCRIT 42.3 % (39.0-53.0); HEMOGLOBIN 14.1 g/dL (13.0-17.5); LYMPH # 4.8 x10^3/uL (1.0-4.8); LYMPH % 53 % (24-48); MEAN CORPUSCULAR HEMOGLOBIN 31 pg (25-35); MEAN CORPUSCULAR HGB CONC 33 g/dL (31-37); MEAN CORPUSCULAR VOLUME 92 fL (79-100); MONO # 0.9 x10^3/uL (0.0-1.1); MONO % 10 % (0-9); NEUT # 3.2 x10^3uL (1.8-7.7); NEUT % 35 % (31-73); PLATELET COUNT 215 x10^3/uL (140-400); RED BLOOD COUNT 4.61 x10^6/uL (4.30-5.70); RED CELL DISTRIBUTION WIDTH 13.6 % (11.5-14.5); WHITE BLOOD COUNT 9.1 x10^3/uL (4.0-11.0)
[2020-12-16] MEDS ORDERED: IV RINGERS SOLUTION,LACTATED 1,000 ML IV SCH (04:30)
[2020-12-16] MEDS ORDERED: ASPIRIN CHEWABLE 81 MG TABLET. PO ONE (04:30)
--- NOTE | 2020-12-16 04:31 | RAD ---
XR CHEST 1V Clinical History: Reason: cp / Spl. Instructions: / History: Technique: AP view of the chest was obtained at 12/16/2020 4:19 AM. Comparison: October 27, 2018. Findings: The cardiomediastinal silhouette is normal. The pulmonary vasculature is normal. The lungs and pleura l margins are clear. Impression: No evidence of an acute cardiopulmonary process. Electronically signed by: Awais Ruiz III, MD (12/16/2020 4:29 AM) [facility]
[2020-12-16 04:34] LABS: CALCIUM 8.3 mg/dL (8.5-10.1); CREATININE 0.9 mg/dL (0.7-1.3); POTASSIUM 3.4 mmol/L (3.5-5.1)
[2020-12-16 04:41] LABS: DIRECT BILIRUBIN 0.1 mg/dL (0.0-0.2); MAGNESIUM 1.8 mg/dL (1.8-2.4); TOTAL BILIRUBIN 0.2 mg/dL (0.2-1.0); TOTAL PROTEIN 7.6 g/dL (6.4-8.2)
[2020-12-16] MEDS ORDERED: MAGNESIUM HYDROXIDE 2,400 MG/30 ML ORAL.SUSP. PO ONE (05:00)
[2020-12-16] MEDS ORDERED: FAMOTIDINE 20 MG/2 ML VIAL IVP ONE (05:00)
[2020-12-16] MEDS ORDERED: ACETAMINOPHEN 500 MG TABLET PO ONE (05:00)
[2020-12-16] MEDS ORDERED: ACETAMINOPHEN 325 MG TABLET PO PRN (05:30)
[2020-12-16] MEDS ORDERED: ONDANSETRON PF 4 MG/2 ML VIAL. IVP PRN (05:30)
[2020-12-16] MEDS ORDERED: MORPHINE SULFATE 4 MG/ML DISP.SYRIN. IVP PRN (05:30)
[2020-12-16] MEDS ORDERED: ENOXAPARIN ** NOTE DOSE ** SYRINGE SQ ONE (05:30)
[2020-12-16 05:33] LABS: BACTERIA,URINE 0 /HPF (0-FEW); BILIRUBIN,URINE NEG (NEG); CLARITY,URINE CLEAR; COLOR,URINE YELLOW; GLUCOSE,URINE NEG (NEG); NITRITE,URINE NEG (NEG); RBC,URINE 0 /HPF (0-2); SQUAMOUS EPITHELIAL CELL,UR OCC /LPF; UROBILINOGEN,URINE 0.2 mg/dL (0.2 mg/dL); WBC,URINE RARE /HPF (0-4)
[2020-12-16] MEDS ORDERED: IV RINGERS SOLUTION,LACTATED 1,000 ML IV ONE (06:00)
[2020-12-16] MEDS ORDERED: NICOTINE 21MG PATCH. TD ONE (06:00)
[2020-12-16] MEDS ORDERED: MORPHINE SULFATE 4 MG/ML DISP.SYRIN. IV ONE (06:00)
--- NOTE | 2020-12-16 08:23 | PDOC2 ---
BECCA HICKS NAVID 12/16/20 0823: CARDIAC CONSULT DATE OF CONSULT DOS: DATE: 12/16/20 TIME: 08:18 REASON FOR CONSULT Reason for Consult Chest pain REFERRING PHYSICIAN Referring Physician Dr. Estrada SOURCE Source: Chart review, Patient HPI History of Present Illness This is a 50 yo male who presented secondary to chest pain. Patient reports pain start early this morning, about 30 mins prior to arrival. Located in his central chest. Describes as stabbing pain. Pain radiates up to his throat for which he reports as tightness. Pain associated with diaphoresis and nausea. No shortness of breath, dizziness, or palpitations. Pain not worsened with deep breathing or by applying pressure to the central chest. Took MOM in ED without an significant relief. Pain persists, although not as intense as pain was prior. Has a history of renal infarction. Has been treated with warfarin since. INR was subtherapeutic at 1.3. concerned as he has a history of clots and has the Han and Hna vaccine 2 days ago. No history of CAD. Underwent stress echo in 2019 as noted below. 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 PAST MEDICAL HISTORY Psych: Anxiety, Depression Renal/: Other (Renal infarction treated with Coumadin) PAST SURGICAL HISTORY Past Surgical History: No pertinent history FAMILY HISTORY Family History: Other (noncontributory to CV) SOCIAL HISTORY Smoke: 1 pack per day ALCOHOL: none Drugs: None Lives: with Family CURRENT MEDICATIONS Current Medications Current Medications Aspirin (Aspirin Chewable) 324 mg 1X ONCE PO ; Start 12/16/20 at 04:30; Stop 12/16/20 at 04:31; Status DC Lactated Ringer's 1,000 ml @ 100 mls/hr Q10H IV Last administered on 12/16/20at 04:16; Start 12/16/20 at 04:30; Stop 12/16/20 at 14:29 Famotidine (Pepcid Vial) 20 mg 1X ONCE IVP Last administered on 12/16/20at 04:47; Start 12/16/20 at 05:00; Stop 12/16/20 at 05:01; Status DC Magnesium Hydroxide (Milk Of Magnesia) 2,400 mg 1X ONCE PO Last administered on 12/16/20at 04:47; Start 12/16/20 at 05:00; Stop 12/16/20 at 05:01; Status DC Acetaminophen (Tylenol) 1,000 mg 1X ONCE PO Last administered on 12/16/20at 05:11; Start 12/16/20 at 05:00; Stop 12/16/20 at 05:01; Status DC Enoxaparin Sodium (Lovenox 100mg Syringe) 100 mg 1X ONCE SQ Last administered on 12/16/20at 05:34; Start 12/16/20 at 05:30; Stop 12/16/20 at 05:31; Status DC Morphine Sulfate (Morphine 4mg Syringe) 4 mg 1X ONCE IV ; Start 12/16/20 at 06:00; Stop 12/16/20 at 06:01; Status DC Lorazepam (Ativan Inj) 2 mg 1X ONCE IVP Last administered on 12/16/20at 05:32; Start 12/16/20 at 06:00; Stop 12/16/20 at 06:01; Status DC Ondansetron HCl (Zofran) 4 mg PRN Q4HRS PRN IVP NAUSEA/VOMITING 1ST CHOICE; Start 12/16/20 at 05:30; Stop 12/17/20 at 05:29 Morphine Sulfate (Morphine 4mg Syringe) 4 mg PRN Q4HRS PRN IVP SEVERE PAIN 7- 10; Start 12/16/20 at 05:30; Stop 12/17/20 at 05:29 Acetaminophen (Tylenol) 650 mg PRN Q4HRS PRN PO FEVER > 100.3'F; Start 12/16/20 at 05:30; Stop 12/17/20 at 05:29 Albuterol/ Ipratropium (Duoneb) 3 ml RTQID NEB ; Start 12/16/20 at 08:00; Stop 12/17/20 at 07:59 Nicotine (Nicoderm Cq 21mg Patch) 1 patch 1X ONCE TD ; Start 12/16/20 at 06:00; Stop 12/16/20 at 06:01; Status DC Famotidine (Pepcid Vial) 20 mg BID IVP ; Start 12/16/20 at 09:00 Lactated Ringer's 1,000 ml @ 160 mls/hr 1X ONCE IV ; Start 12/16/20 at 06:00; Stop 12/16/20 at 12:14 Active Scripts Active Wellbutrin Sr (Bupropion Hcl) 100 Mg Tablet.er 1 Tab PO BID Reported Clonazepam 0.5 Mg Tablet 0.5 Mg PO PRN BID PRN LAST DOSE GIVEN: DATE: TIME: NEXT DOSE DUE: DATE: TIME: Warfarin Sodium 4 Mg Tablet 4.5 Mg PO DAILY Warfarin Sodium 4 Mg Tablet 4 Mg PO ED-JNOMA-OHE-TUE ALLERGIES Allergies: Coded Allergies: No Known Drug Allergies (Unverified , 10/18/18) ROS Review of Systems 14 point ROS conducted with pertinent positives noted above in HPI PHYSICAL EXAM General: Alert, Oriented X3, Cooperative, No acute distress HEENT: Atraumatic, Mucous membr. moist/pink Lungs: Clear to auscultation Heart: Regular rate Abdomen: Soft, No tenderness Extremities: No edema, Normal pulses Skin: No breakdown Neuro: Normal speech, Sensation intact Psych/Mental Status: Mental status NL, Mood NL MUSCULOSKELETAL: No joint tenderness VITALS Vital Signs Vital Signs Date Time Temp Pulse Resp B/P (MAP) Pulse Ox O2 Delivery O2 Flow Rate FiO2 12/16/20 05:39 98 Room Air 12/16/20 04:05 98.7 67 18 146/93 (110) LABS LABS Laboratory Tests Test 12/16/20 04:05 12/16/20 05:13 12/16/20 07:20 White Blood Count 9.1 x10^3/uL (4.0-11.0) Red Blood Count 4.61 x10^6/uL (4.30-5.70) Hemoglobin 14.1 g/dL (13.0-17.5) Hematocrit 42.3 % (39.0-53.0) Mean Corpuscular Volume 92 fL (79-100) Mean Corpuscular Hemoglobin 31 pg (25-35) Mean Corpuscular Hemoglobin Concent 33 g/dL (31-37) Red Cell Distribution Width 13.6 % (11.5-14.5) Platelet Count 215 x10^3/uL (140-400) Neutrophils (%) (Auto) 35 % (31-73) Lymphocytes (%) (Auto) 53 % (24-48) Monocytes (%) (Auto) 10 % (0-9) Eosinophils (%) (Auto) 2 % (0-3) Basophils (%) (Auto) 1 % (0-3) Neutrophils # (Auto) 3.2 x10^3uL (1.8-7.7) Lymphocytes # (Auto) 4.8 x10^3/uL (1.0-4.8) Monocytes # (Auto) 0.9 x10^3/uL (0.0-1.1) Eosinophils # (Auto) 0.2 x10^3/uL (0.0-0.7) Basophils # (Auto) 0.1 x10^3/uL (0.0-0.2) Prothrombin Time 13.5 SEC (9.4-11.4) Prothromb Time International Ratio 1.3 (0.9-1.1) Activated Partial Thromboplast Time 31 SEC (23-33) D-Dimer (Gaby) 0.33 mg/L (0.00-0.50) Sodium Level 141 mmol/L (136-145) Potassium Level 3.4 mmol/L (3.5-5.1) Chloride Level 105 mmol/L (98-107) Carbon Dioxide Level 28 mmol/L (21-32) Anion Gap 8 (6-14) Blood Urea Nitrogen 25 mg/dL (8-26) Creatinine 0.9 mg/dL (0.7-1.3) Estimated GFR (Cockcroft-Gault) 89.0 Glucose Level 84 mg/dL (70-99) Calcium Level 8.3 mg/dL (8.5-10.1) Magnesium Level 1.8 mg/dL (1.8-2.4) Total Bilirubin 0.2 mg/dL (0.2-1.0) Direct Bilirubin 0.1 mg/dL (0.0-0.2) Aspartate Amino Transf (AST/SGOT) 18 U/L (15-37) Alanine Aminotransferase (ALT/SGPT) 41 U/L (16-63) Alkaline Phosphatase 62 U/L (46-116) Creatine Kinase 181 U/L (39-308) Troponin I Quantitative < 0.017 ng/mL (0-0.055) 0.726 ng/mL (0-0.055) Total Protein 7.6 g/dL (6.4-8.2) Albumin 4.0 g/dL (3.4-5.0) Lipase 103 U/L (73-393) Urine Collection Type Unknown Urine Color Yellow Urine Clarity Clear Urine pH 6.0 Urine Specific [place] 1.025 Urine Protein Neg (NEG-TRACE) Urine Glucose (UA) Neg mg/dL (NEG) Urine Ketones (Stick) Neg mg/dL (NEG) Urine Blood Neg (NEG) Urine Nitrite Neg (NEG) Urine Bilirubin Neg (NEG) Urine Urobilinogen Dipstick 0.2 mg/dL (0.2 mg/dL) Urine Leukocyte Esterase Neg (NEG) Urine RBC 0 /HPF (0-2) Urine WBC Rare /HPF (0-4) Urine Squamous Epithelial Cells Occ /LPF Urine Bacteria 0 /HPF (0-FEW) ECHOCARDIOGRAM Echocardiogram STRESS ECG Stress EKG shows no significant changes. Preliminary Notification Critical Value: No <Conclusion> Normal resting EKG No significant EKG changes with stress. EKG artifacts due to motion preclude accurate assessment. Normal baseline EF/wall motion. Normal stress EF and wall motion. Low risk study DATE: 11/15/18 1457 ASSESSMENT/PLAN Assessment/Plan 1. Chest pain, mixed features 2. Elevated troponin; highest 0.7. EKG noted with inferior t waved inversion, which was not noted in previous study 10/2018 3. H/o renal infarct on warfarin therapy. INR subtherapeutic at 1.3. Received Lovenox treatment dosing x1. D-dimer negative 4. Anxiety, depression 5. Tobaccoism; discussed, encouraged cessation Recommendations ASA Lipids, TSH Echo to assess LV systolic function Nitro Trend troponin Given chest pain in the setting of elevated troponin and EKG changes, would recommend further ischemic evaluation with left heart catheterization. R/b/a discussed with patient and he is agreeable Will transfer to [facility] Keep NPO ELIGIO WARE MD 12/16/20 1635: CARDIAC CONSULT ASSESSMENT/PLAN Assessment/Plan Patient seen and examined. Agree with [employer]RON[facility] TE[employer]'s assessment and plan. Agree with cardiac catheterization secondary to ongoing chest pain and elevated troponin level/non-STEMI Risks and benefits were explained and he is agreeable Thank you. BECCA HICKS APRN Dec 16, 2020 08:23 EILGIO WARE MD Dec 16, 2020 16:35
--- NOTE | 2020-12-16 08:27 | NUR ---
Requesting this patients breathing txs be discontinued. Spo2 98% on RA CXR Normal Admitted for Chest pain No complaint of cough or SOA Labs normal No home Respiratory meds. No Respiratory history. Thank you, Respiratory therapy
[2020-12-16] MEDS ORDERED: FAMOTIDINE 20 MG/2 ML VIAL IVP SCH (09:00)
[2020-12-16] MEDS: NITROGLYCERIN SUBLINGUAL 0.4 MG BOTTLE OF 25. SL PRN ×2 (09:04→09:28)
[2020-12-16 09:28] VITALS: BP 133/77
[2020-12-16] MEDS: IPRATRPIUM/ALBUTEROL 0.5/2.5MG 3 ML NEBU. NEB SCH ×2 (09:30→11:12)
[2020-12-16 13:44] LABS: THYROID STIM HORMONE (TSH) 1.286 uIU/mL (0.358-3.740)
--- NOTE | 2020-12-16 15:57 | CARD ---
MR#: [id number] Date of Study: 12/16/2020 Ordering Physician: BECCA HICKS, Referring Physician: BECCA HICKS, Tech: Karen Gayle BRODY APPROVED REPORT EXAM: Two-dimensional and M-mode echocardiogram with Doppler and color Doppler. Other Information Quality : Good Rhythm : Bradycardia INDICATION Chest Pain 2D DIMENSIONS RVDd3.0 (2.9-3.5cm)Left Atrium(2D)3.2 (1.6-4.0cm) IVSd0.8 (0.7-1.1cm)Aortic Root(2D)4.0 (2.0-3.7cm) LVDd5.4 (3.9-5.9cm)LVOT Diameter2.3 (1.8-2.4cm) PWd0.8 (0.7-1.1cm)LVDs3.4 (2.5-4.0cm) FS (%) 30.0 %SV96.8 ml LVEF(%)60.0 (>50%) Aortic Valve AoV Peak Junior.106.0cm/sAoV VTI22.0cm AO Peak GR.4.0mmHgAO Mean GR.3mmHg GENA (VTI)3.50cm2 Mitral Valve MV E Ntudiuap02.0cm/sMV DECEL [id number] MV A Jryhgenr70.0cm/sE/A Ratio1.9 Tricuspid Valve TR P. [id number]/sRAP [id number] TR Peak Gr.[id number] LEFT VENTRICLE The left ventricle is normal size. There is normal left ventricular wall thickness. The left ventricu lar systolic function is normal. The Ejection Fraction is 55-60%. There is normal LV segmental wall m otion. The left ventricular diastolic function and filling is normal for age. RIGHT VENTRICLE The right ventricle is normal size. The right ventricular systolic function is normal. ATRIA The left atrium size is normal. The right atrium size is normal. The interatrial septum is intact wit h no evidence for an atrial septal defect or patent foramen ovale as noted on 2-D or Doppler imaging. AORTIC VALVE The aortic valve is normal in structure and function. Doppler and Color Flow revealed trace aortic re gurgitation. There is no significant aortic valvular stenosis. MITRAL VALVE The mitral valve is normal in structure and function. There is no evidence of mitral valve prolapse. There is no mitral valve stenosis. Doppler and Color-flow revealed trace mitral regurgitation. TRICUSPID VALVE The tricuspid valve is normal in structure and function. Doppler and Color Flow revealed trace tricus pid regurgitation. The PA pressure was estimated at 23 mmHg. There is no tricuspid valve stenosis. PULMONIC VALVE The pulmonary valve is normal in structure and function. Doppler and Color Flow revealed trace to mil d pulmonic valvular regurgitation. There is no pulmonic valvular stenosis. GREAT VESSELS The aortic root is mildly enlarged. The ascending aorta is not well seen. The IVC is normal in size a nd collapses >50% with inspiration. PERICARDIAL EFFUSION There is no evidence of significant pericardial effusion. Critical Notification Critical Value: No <Conclusion> The left ventricular systolic function is normal. The Ejection Fraction is 55-60%. There is normal LV segmental wall motion. Trace mitral regurgitation. Trace tricuspid regurgitation. The PA pressure was estimated at 23 mmHg. There is no evidence of significant pericardial effusion. Signed by : Mark Scott, Electronically Approved : 12/16/2020 15:57:13
--- NOTE | 2020-12-17 13:10 | SSS ---
ADMIT DATE: 12/16/2020 HISTORY OF PRESENT ILLNESS: The patient is a 50-year-old [place] male patient who came to the Emergency Room of [facility] complaining of chest pain that started about 30 minutes prior to arrival to the Emergency Room. The patient stated that he started smoking again. He was seen previously on 10/27 to 10/28/2018 for his chest pain. He consulted Dr. Scott. At that time, cardiac infarct was ruled out. He rated his pain as 10/10. Does not have any history of anxiety, never had any history of myocardial infarction or hypertension. 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 There is no recent travel, history of trauma, no specific ill contact, no change in baseline medication. He reported that he has some of his Coumadin medication and unfortunately, he resumed smoking again. He was extensively investigated in the Emergency Room and has had an EKG, which showed that he was in sinus rhythm. His troponin was slightly elevated and second troponin has risen further. Apparently, went up to 0.726 and then 4.477 and therefore, the patient was evaluated by the Cardiology team and a decision was made to transfer him to [facility] with diagnosis of non-ST segment elevation myocardial infarction. He has had an echocardiogram done prior to transfer to [facility], which showed left ventricular systolic function normal. His ejection fraction was 55-60%, has normal left ventricular segmental wall motion, has a trace mitral regurgitation, trace tricuspid regurgitation. Pulmonary artery pressure was estimated at 23 mmHg. There was no significant pericardial effusion. PAST MEDICAL HISTORY: Significant for renal infarct, treated with Coumadin, has also anxiety and depression. PAST SURGICAL HISTORY: Unremarkable. FAMILY HISTORY: Noncontributory. SOCIAL HISTORY: He is , lives with his family. He continued to smoke a pack a day, does not drink alcohol or use any recreational drugs. REVIEW OF SYSTEMS: As per history of present illness. MEDICATIONS: He was on Coumadin 4 mg daily. He was also on Wellbutrin 100 mg twice a day, clonazepam 0.5 mg twice a day. PHYSICAL EXAMINATION: GENERAL: On arrival to the Emergency Room, he looked well and was clearly in no apparent respiratory distress. No pallor, jaundice, cyanosis or thyromegaly. No jugular venous distention or limb edema. VITAL SIGNS: His heart rate was 67, blood pressure was 146/93, temperature was 98.7, respiratory rate was 18 and oxygen saturation was 99%. HEAD, EYES, EARS, NOSE AND THROAT: Normocephalic, atraumatic. NECK: Supple. HEART: Showed normal first and second heart sounds. No gallop, rub or murmur. CHEST: Clear to auscultation. No crepitation or rhonchi. ABDOMEN: Distended, soft, nontender. NEUROLOGIC: He was awake, alert, responding appropriately. All cranial nerves intact. EXTREMITIES: He moves extremities without difficulty. LABORATORY DATA: Showed white cell count of 9000, hemoglobin 14, hematocrit 42, MCV 92, and platelet count 215,000 with a manual differential showed 35% polymorphs, 53% lymphocytes and 10% monocytes. His prothrombin time, INR and aPTT as well as D-dimer were all normal. His chemistry showed a serum sodium 141, potassium 3.4, chloride 105, bicarbonate 28, anion gap of 8, BUN 25, creatinine 0.9, estimated GFR was 89 mL per minute. His glucose was 84, calcium was 8.3, magnesium was 1.8. Total bilirubin, AST, ALT, alkaline phosphatase were normal. He has 3 sets of cardiac enzymes showed progressive rise of his troponin that peaked at 4.477. The patient was seen by the Cardiology team and the patient was transferred to [facility] with diagnosis of non-ST segment elevation myocardial infarction. His fasting lipid profile showed serum triglycerides 186, total cholesterol 171, LDL cholesterol 102, VLDL was 37, HDL was 32 and the ratio was 5. His serum lipase was 103 and TSH was normal at 1.86. YENY HURD MD DR: RACHID/rivas JOB#: [id number] / [id number]
== END 2020-12-16 11:35 | disposition short-term general hospital (02) ==
LOC: ER 03:58 → INTOOBSV 05:24 → ICU 05:24
PROVIDERS: ADMIT Internal Medicine; ATTEND Internal Medicine
DX: I21.4 Non-ST elevation (NSTEMI) myocardial infarction (principal); I10 Essential (primary) hypertension; F41.9 Anxiety disorder, unspecified; F32.9 Major depressive disorder, single episode, unspecified; F17.210 Nicotine dependence, cigarettes, uncomplicated; R77.8 Other specified abnormalities of plasma proteins; R79.1 Abnormal coagulation profile; Z79.01 Long term (current) use of anticoagulants; Z86.718 Personal history of other venous thrombosis and embolism; Z79.82 Long term (current) use of aspirin
CPT/HCPCS: 36415; 71045; 80048; 80061; 80076; 81001; 82550; 83690; 83735; 84443; 84484; 85025; 85379; 85610; 85730; 93005; 93306; 96372; 96374; 96375; 99285; G0378; J1650; J2060; J3490; J7120; 96361; G0379